=== PATIENT | male | born 1960 | race African-American/Black ===

== ENCOUNTER 2021-11-16 19:20 | Emergency (ER) | payer MEDICAID, OTHER ==
[~2021-11-16] VITALS: Ht 182.9 cm; Wt 86.0 kg
[2021-11-16 19:24] VITALS: BP 109/62
[2021-11-16] MEDS ORDERED: IBUPROFEN 400MG TABLET PO ONE (20:45)
[2021-11-16] MEDS ORDERED: ACETAMINOPHEN 325MG TABLET PO ONE (20:45)
== END 2021-11-17 03:17 | disposition home or self-care (01) ==
LOC: ER 19:20
DX: S09.8XXA Other specified injuries of head, initial encounter (principal); W18.39XA Other fall on same level, initial encounter; Y93.89 Activity, other specified; Y92.89 Other specified places as the place of occurrence of the external cause; Y99.8 Other external cause status
CPT/HCPCS: 70450; 72170; 73080; 73090; 73562; 93005; 99285; J7070

== ENCOUNTER 2022-03-30 19:12 | Emergency (ER) | payer MEDICAID, OTHER ==
[~2022-03-30] VITALS: Ht 170.2 cm; Wt 78.0 kg
[2022-03-30 19:22] VITALS: BP 132/68
[2022-03-30] MEDS ORDERED: TETANUS, DIPHTHERIA, PERTUSSIS VAC/PF 0.5ML (>10YR OLD) IM ONE (21:30)
[2022-03-30] MEDS ORDERED: CLINDAMYCIN PHOSPHATE 600MG/4ML VIAL IM ONE (21:30)
[2022-03-30] MEDS ORDERED: BACITRACIN ZINC OINT UDPKT TOP ONE (21:30)
[2022-03-30] MEDS ORDERED: LIDOCAINE HCL/EPINEPHRINE 1%-EPI 1:100,000 20 ML VIAL INFIL ONE (21:30)
[2022-03-30] MEDS ORDERED: CLIN-194 MT (21:54)
[2022-03-30] MEDS ORDERED: CLINDAMYCIN HCL 150MG CAPSULE PO SCH (22:45)
== END 2022-03-31 00:30 | disposition home or self-care (01) ==
LOC: ER 19:12
DX: L02.818 Cutaneous abscess of other sites (principal); Z98.890 Other specified postprocedural states
CPT/HCPCS: 10060; 90471; 90715; 99283; J3490; Z7610